=== PATIENT | male | born 1955 | race Caucasian/White ===

== ENCOUNTER 2019-06-10 08:43 | Outpatient (CLI) | payer MEDICARE, BC ==
[2019-06-10] VITALS (7 sets, daily range): BP systolic 121–145; BP diastolic 49–83; PULSE 49–64
[~2019-06-10] VITALS: Ht 175.3 cm; Wt 93.4 kg
[~2019-06-10 08:43] MED LIST: NORCO 325 MG-51 TAB PO; TYLENOL PM EXTR1 TA1 PO
--- NOTE | 2019-06-10 10:15 | NUR ---
Transferred to [facility] by cart from Radiology. Kirby bandaids noted to mid back CD&I. Pt denies pain at this time. VSS. Pepsi given to pt by request.
[2019-06-10 10:44] LABS: CSF MONONUCLEAR 67 % (70-100); CSF POLYMORPHONUCLEAR 33 % (0-6)
[2019-06-10 10:45] LABS: CSF RBC 11000 /mm3 (0-0)
[2019-06-10 10:46] LABS: CSF APPEARANCE BLOODY; CSF COLOR PINK
[2019-06-10 11:04] LABS: GLUCOSE,CSF 62 mg/dL (40-70); TOTAL PROTEIN,CSF 167 mg/dL (15-45)
--- NOTE | 2019-06-10 11:15 | NUR ---
Dicharge instructions given. Transferred to private car by [email or web address]
[2019-06-11 10:34] LABS: EBV EARLY ANTIGEN IGG Positive (()); EBV IGM AB Negative (()); EBV NUCLEAR ANTIGEN IGG Positive (())
[2019-06-13 14:06] LABS: ALBUMIN CSF 83.4 mg/dL (<=27.0)
[2019-06-13 14:25] LABS: ALBUMUN SERUM 3770 mg/dL (()); IGG,SERUM 1100 mg/dL (()); IGG/ALBUMIN SERUM 0.29 (<=0.40)
[2019-06-13 15:00] LABS: CSF IGG/ALBUMIN 0.15 (<=0.21); CSF SYNTHESIS RATE 7.05 mg/24 h (<=12); CSF,IGG 12.3 mg/dL (<=8.1); CSF-IGG INDEX 0.52 (<=0.85)
[2019-06-15 07:52] LABS: HERPES SIMPLEX VIRUS 1 IGG XXX; HERPES SIMPLEX VIRUS 2 IGG XXX
== END 2019-06-10 11:15 | disposition home or self-care (01) ==
LOC: COL.RAD 08:43
PROVIDERS: Psychiatry & Neurology Neurology
DX: R90.89 Other abnormal findings on diagnostic imaging of central nervous system (principal)